=== PATIENT | male | born 1965 | race African-American/Black ===

== ENCOUNTER 2023-06-13 17:00 | Inpatient (IN) | payer OTHER ==
[2023-06-13 18:38] VITALS: BMI 21.8
[2023-06-13] MEDS ORDERED: NICOTINE POLACRILEX 4 MG GUM BUC PRN (21:29)
[2023-06-13] MEDS ORDERED: BENZONATATE 200 MG CAPSULE PO PRN (21:29)
[2023-06-13] MEDS ORDERED: COLLOIDAL OATMEAL 1 BAR EACH TP PRN (21:29)
[2023-06-13] MEDS ORDERED: NALOXONE HCL (KLOXXADO) 8 MG SPRAY NS PRN (21:29)
[2023-06-13] MEDS ORDERED: MAG HYDROX/AL HYDROX/SIMETH 30 ML UNIT-DOSE CUP PO PRN (21:29)
[2023-06-13] MEDS ORDERED: LOPERAMIDE HCL 2 MG CAPSULE PO PRN (21:29)
[2023-06-13] MEDS ORDERED: MAGNESIUM HYDROX 2400MG/30ML ORAL SUSPENSION 30 ML CUP PO PRN (21:29)
[2023-06-13] MEDS ORDERED: TUBERCULIN PPD 5 TU/0.1ML SYRINGE (IN PATIENT USE ONLY) ID ONE (21:29)
[2023-06-13] MEDS ORDERED: guaiFENesin 600 MG TABLET.ER (FP) PO PRN (21:29)
[2023-06-13] MEDS ORDERED: AMMONIUM LACTATE 12% LOTION 225 GM BOTTLE TP PRN (21:29)
[2023-06-13] MEDS ORDERED: POLYETHYLENE GLYCOL (HEALTHYLAX) 3350 17 GM PACKET PO PRN (21:29)
[2023-06-13] MEDS ORDERED: IBUPROFEN 400 MG TABLET (FP) PO PRN (21:29)
[2023-06-13] MEDS ORDERED: IBUPROFEN 600 MG TABLET (FP) PO PRN (21:29)
[2023-06-13] MEDS ORDERED: NALOXONE HCL 0.4 MG/ML VIAL IM PRN (21:29)
[2023-06-13] MEDS ORDERED: TUBERCULIN PPD 5 TU/0.1ML VIAL ID ONE ×2 (22:22→22:52)
[2023-06-13] MEDS: MELATONIN 5 MG TABLETS PO SCH (22:52)
[2023-06-13] MEDS: THIAMINE HCL 100 MG TABLET (FP) PO SCH (22:52)
[2023-06-14] MEDS: PRENATAL VITAMINS W/ FOLIC ACID TABLET (FP) PO SCH (09:17)
[2023-06-14] MEDS: NICOTINE 21 MG/24 HOURS TOPICAL PATCH TD SCH (09:18)
[2023-06-14 11:16] LABS: PH,URINE 5.5 (5.0-8.0); URINE APPEARANCE CLEAR; URINE BILIRUBIN NEGATIVE (NEGATIVE); URINE COLOR YELLOW; URINE GLUCOSE (UA) TRACE (NEGATIVE); URINE KETONE NEGATIVE (NEGATIVE); URINE LEUK ESTERASE NEGATIVE (NEGATIVE); URINE NITRITE NEGATIVE (NEGATIVE); URINE PROTEIN NEGATIVE (NEGATIVE); URINE UROBILINOGEN 0.2 mg/dL (0.2-1.0)
[2023-06-14] MEDS: SACUBITRIL/VALSARTAN 24 MG-26 MG TABLET PO SCH ×2 (12:11→21:43)
[2023-06-14] MEDS: CARVEDILOL 12.5 MG TABLET (FP) PO SCH ×2 (12:11→21:43)
[2023-06-14] MEDS: FUROSEMIDE 40 MG TABLET (FP) PO SCH (12:11)
[2023-06-14] MEDS: SPIRONOLACTONE 25 MG TABLET PO SCH (12:12)
[2023-06-14] MEDS: DAPAGLIFLOZIN PROPANEDIOL 10 MG TABLET PO SCH (12:36)
[2023-06-14 16:21] LABS: HEMATOCRIT 42.6 % (35.4-49); HEMOGLOBIN 13.3 GM/dL (11.7-16.9); MCH 24.3 pg (25.7-33.7); MCHC 31.3 g/dl (32.0-35.9); MEAN CELL VOLUME 77.5 fl (80-96); PLATELET COUNT 287 10^3/uL (134-434); RDW 15.9 % (11.9-15.9); WHITE BLOOD COUNT 7.4 K/mm3 (4.0-10.0)
[2023-06-14 16:25] LABS: ALBUMIN 3.7 g/dl (3.4-5.0); BLOOD UREA NITROGEN 20.1 mg/dL (7-18); CALCIUM 9.5 mg/dL (8.5-10.1)
[2023-06-14 16:30] LABS: BILIRUBIN,TOTAL 0.2 mg/dL (0.2-1); TOT PROT 7.9 g/dl (6.4-8.2)
[2023-06-14] MEDS: MELATONIN 5 MG TABLETS PO SCH (21:43)
[2023-06-14] MEDS: THIAMINE HCL 100 MG TABLET (FP) PO SCH (21:43)
[2023-06-15] MEDS: DAPAGLIFLOZIN PROPANEDIOL 10 MG TABLET PO SCH (06:36)
[2023-06-15] MEDS: NICOTINE 21 MG/24 HOURS TOPICAL PATCH TD SCH (10:01)
[2023-06-15] MEDS: PRENATAL VITAMINS W/ FOLIC ACID TABLET (FP) PO SCH (10:01)
[2023-06-15] MEDS: SACUBITRIL/VALSARTAN 24 MG-26 MG TABLET PO SCH ×2 (10:42→21:17)
[2023-06-15] MEDS: SPIRONOLACTONE 25 MG TABLET PO SCH (10:42)
[2023-06-15] MEDS: CARVEDILOL 12.5 MG TABLET (FP) PO SCH ×2 (10:43→21:17)
[2023-06-15] MEDS: FUROSEMIDE 40 MG TABLET (FP) PO SCH (10:44)
[2023-06-15] MEDS: MELATONIN 5 MG TABLETS PO SCH (21:16)
[2023-06-15] MEDS: THIAMINE HCL 100 MG TABLET (FP) PO SCH (21:16)
[2023-06-16] MEDS: DAPAGLIFLOZIN PROPANEDIOL 10 MG TABLET PO SCH (06:05)
[2023-06-16] MEDS: SACUBITRIL/VALSARTAN 24 MG-26 MG TABLET PO SCH ×2 (09:03→21:23)
[2023-06-16] MEDS: CARVEDILOL 12.5 MG TABLET (FP) PO SCH ×2 (09:03→21:23)
[2023-06-16] MEDS: SPIRONOLACTONE 25 MG TABLET PO SCH (09:03)
[2023-06-16] MEDS: NICOTINE 21 MG/24 HOURS TOPICAL PATCH TD SCH (09:04)
[2023-06-16] MEDS: PRENATAL VITAMINS W/ FOLIC ACID TABLET (FP) PO SCH (09:04)
[2023-06-16] MEDS: FUROSEMIDE 40 MG TABLET (FP) PO SCH (09:04)
[2023-06-16] MEDS: ACETAMINOPHEN 325 MG TABLET (FP) PO PRN (15:39)
[2023-06-16] MEDS ORDERED: NICOTINE 21 MG/24 HOURS TOPICAL PATCH TD PRN (15:58)
[2023-06-16] MEDS: MELATONIN 5 MG TABLETS PO SCH (21:23)
[2023-06-16] MEDS: THIAMINE HCL 100 MG TABLET (FP) PO SCH (21:23)
[2023-06-17] MEDS: DAPAGLIFLOZIN PROPANEDIOL 10 MG TABLET PO SCH (06:25)
[2023-06-17] MEDS: CARVEDILOL 12.5 MG TABLET (FP) PO SCH ×2 (09:54→21:18)
[2023-06-17] MEDS: FUROSEMIDE 40 MG TABLET (FP) PO SCH (09:55)
[2023-06-17] MEDS: PRENATAL VITAMINS W/ FOLIC ACID TABLET (FP) PO SCH (09:55)
[2023-06-17] MEDS: SPIRONOLACTONE 25 MG TABLET PO SCH (09:55)
[2023-06-17] MEDS: SACUBITRIL/VALSARTAN 24 MG-26 MG TABLET PO SCH ×2 (09:55→21:18)
[2023-06-17] MEDS: THIAMINE HCL 100 MG TABLET (FP) PO SCH (21:18)
[2023-06-17] MEDS: MELATONIN 5 MG TABLETS PO SCH (21:18)
[2023-06-18] MEDS: DAPAGLIFLOZIN PROPANEDIOL 10 MG TABLET PO SCH (06:17)
[2023-06-18] MEDS: FUROSEMIDE 40 MG TABLET (FP) PO SCH (09:53)
[2023-06-18] MEDS: SACUBITRIL/VALSARTAN 24 MG-26 MG TABLET PO SCH ×2 (09:53→21:06)
[2023-06-18] MEDS: SPIRONOLACTONE 25 MG TABLET PO SCH (09:53)
[2023-06-18] MEDS: PRENATAL VITAMINS W/ FOLIC ACID TABLET (FP) PO SCH (09:54)
[2023-06-18] MEDS: CARVEDILOL 12.5 MG TABLET (FP) PO SCH ×2 (09:54→21:03)
[2023-06-18] MEDS: MELATONIN 5 MG TABLETS PO SCH (21:03)
[2023-06-18] MEDS: THIAMINE HCL 100 MG TABLET (FP) PO SCH (21:03)
[2023-06-19] MEDS: DAPAGLIFLOZIN PROPANEDIOL 10 MG TABLET PO SCH (06:04)
[2023-06-19] MEDS: SPIRONOLACTONE 25 MG TABLET PO SCH (09:45)
[2023-06-19] MEDS: FUROSEMIDE 40 MG TABLET (FP) PO SCH (09:49)
[2023-06-19] MEDS: CARVEDILOL 12.5 MG TABLET (FP) PO SCH ×2 (09:49→21:34)
[2023-06-19] MEDS: SACUBITRIL/VALSARTAN 24 MG-26 MG TABLET PO SCH ×2 (09:49→21:43)
[2023-06-19] MEDS: PRENATAL VITAMINS W/ FOLIC ACID TABLET (FP) PO SCH (09:50)
[2023-06-19] MEDS: MELATONIN 5 MG TABLETS PO SCH (21:34)
[2023-06-19] MEDS: THIAMINE HCL 100 MG TABLET (FP) PO SCH (21:34)
[2023-06-20] MEDS: DAPAGLIFLOZIN PROPANEDIOL 10 MG TABLET PO SCH (06:33)
[2023-06-20] MEDS: SPIRONOLACTONE 25 MG TABLET PO SCH (09:47)
[2023-06-20] MEDS: CARVEDILOL 12.5 MG TABLET (FP) PO SCH ×2 (09:47→21:18)
[2023-06-20] MEDS: SACUBITRIL/VALSARTAN 24 MG-26 MG TABLET PO SCH ×2 (09:48→21:18)
[2023-06-20] MEDS: PRENATAL VITAMINS W/ FOLIC ACID TABLET (FP) PO SCH (09:48)
[2023-06-20] MEDS: FUROSEMIDE 40 MG TABLET (FP) PO SCH (09:48)
[2023-06-20] MEDS: MELATONIN 5 MG TABLETS PO SCH (21:18)
[2023-06-20] MEDS: THIAMINE HCL 100 MG TABLET (FP) PO SCH (21:18)
[2023-06-21] MEDS: DAPAGLIFLOZIN PROPANEDIOL 10 MG TABLET PO SCH (06:04)
[2023-06-21] MEDS: PRENATAL VITAMINS W/ FOLIC ACID TABLET (FP) PO SCH (09:51)
[2023-06-21] MEDS: CARVEDILOL 12.5 MG TABLET (FP) PO SCH ×2 (09:52→21:21)
[2023-06-21] MEDS: SACUBITRIL/VALSARTAN 24 MG-26 MG TABLET PO SCH ×2 (10:37→21:21)
[2023-06-21] MEDS: FUROSEMIDE 40 MG TABLET (FP) PO SCH (10:37)
[2023-06-21] MEDS: SPIRONOLACTONE 25 MG TABLET PO SCH (10:37)
[2023-06-21] MEDS: THIAMINE HCL 100 MG TABLET (FP) PO SCH (21:21)
[2023-06-21] MEDS: MELATONIN 5 MG TABLETS PO SCH (21:22)
[2023-06-22] MEDS: DAPAGLIFLOZIN PROPANEDIOL 10 MG TABLET PO SCH (06:02)
[2023-06-22] MEDS: FUROSEMIDE 40 MG TABLET (FP) PO SCH (09:37)
[2023-06-22] MEDS: PRENATAL VITAMINS W/ FOLIC ACID TABLET (FP) PO SCH (09:37)
[2023-06-22] MEDS: SPIRONOLACTONE 25 MG TABLET PO SCH (09:37)
[2023-06-22] MEDS: CARVEDILOL 12.5 MG TABLET (FP) PO SCH ×2 (09:40→21:20)
[2023-06-22] MEDS: SACUBITRIL/VALSARTAN 24 MG-26 MG TABLET PO SCH ×2 (09:40→21:21)
[2023-06-22] MEDS: THIAMINE HCL 100 MG TABLET (FP) PO SCH (21:20)
[2023-06-22] MEDS: MELATONIN 5 MG TABLETS PO SCH (21:20)
[2023-06-23] MEDS: DAPAGLIFLOZIN PROPANEDIOL 10 MG TABLET PO SCH (06:08)
[2023-06-23] MEDS: ACETAMINOPHEN 325 MG TABLET (FP) PO PRN ×2 (06:09→21:27)
[2023-06-23] MEDS: CARVEDILOL 12.5 MG TABLET (FP) PO SCH ×2 (09:36→21:26)
[2023-06-23] MEDS: SPIRONOLACTONE 25 MG TABLET PO SCH (09:36)
[2023-06-23] MEDS: SACUBITRIL/VALSARTAN 24 MG-26 MG TABLET PO SCH ×2 (09:36→21:30)
[2023-06-23] MEDS: FUROSEMIDE 40 MG TABLET (FP) PO SCH (09:36)
[2023-06-23] MEDS: PRENATAL VITAMINS W/ FOLIC ACID TABLET (FP) PO SCH (09:36)
[2023-06-23] MEDS: BENZOCAINE/MENTHOL (CHLORASEPTIC ) LOZENGE MM PRN (10:59)
[2023-06-23] MEDS: MELATONIN 5 MG TABLETS PO SCH (21:26)
[2023-06-23] MEDS: THIAMINE HCL 100 MG TABLET (FP) PO SCH (21:26)
[2023-06-24] MEDS: DAPAGLIFLOZIN PROPANEDIOL 10 MG TABLET PO SCH (06:20)
[2023-06-24] MEDS: ACETAMINOPHEN 325 MG TABLET (FP) PO PRN ×2 (06:20→19:02)
[2023-06-24] MEDS: SACUBITRIL/VALSARTAN 24 MG-26 MG TABLET PO SCH ×2 (09:58→21:26)
[2023-06-24] MEDS: CARVEDILOL 12.5 MG TABLET (FP) PO SCH ×2 (09:58→21:25)
[2023-06-24] MEDS: FUROSEMIDE 40 MG TABLET (FP) PO SCH (09:58)
[2023-06-24] MEDS: SPIRONOLACTONE 25 MG TABLET PO SCH (09:58)
[2023-06-24] MEDS: PRENATAL VITAMINS W/ FOLIC ACID TABLET (FP) PO SCH (09:59)
[2023-06-24] MEDS: THIAMINE HCL 100 MG TABLET (FP) PO SCH (21:25)
[2023-06-24] MEDS: MELATONIN 5 MG TABLETS PO SCH (21:25)
[2023-06-24] MEDS: BENZOCAINE/MENTHOL (CHLORASEPTIC ) LOZENGE MM PRN (21:26)
[2023-06-25] MEDS: DAPAGLIFLOZIN PROPANEDIOL 10 MG TABLET PO SCH (06:35)
[2023-06-25] MEDS: SPIRONOLACTONE 25 MG TABLET PO SCH (09:08)
[2023-06-25] MEDS: CARVEDILOL 12.5 MG TABLET (FP) PO SCH ×2 (09:09→21:23)
[2023-06-25] MEDS: SACUBITRIL/VALSARTAN 24 MG-26 MG TABLET PO SCH ×2 (09:09→21:23)
[2023-06-25] MEDS: ACETAMINOPHEN 325 MG TABLET (FP) PO PRN (09:10)
[2023-06-25] MEDS: FUROSEMIDE 40 MG TABLET (FP) PO SCH (09:10)
[2023-06-25] MEDS: PRENATAL VITAMINS W/ FOLIC ACID TABLET (FP) PO SCH (09:10)
[2023-06-25] MEDS: MELATONIN 5 MG TABLETS PO SCH (21:23)
[2023-06-25] MEDS: THIAMINE HCL 100 MG TABLET (FP) PO SCH (21:23)
[2023-06-26] MEDS: DAPAGLIFLOZIN PROPANEDIOL 10 MG TABLET PO SCH (06:29)
[2023-06-26] MEDS: SPIRONOLACTONE 25 MG TABLET PO SCH (09:32)
[2023-06-26] MEDS: CARVEDILOL 12.5 MG TABLET (FP) PO SCH ×2 (09:32→21:06)
[2023-06-26] MEDS: FUROSEMIDE 40 MG TABLET (FP) PO SCH (09:32)
[2023-06-26] MEDS: PRENATAL VITAMINS W/ FOLIC ACID TABLET (FP) PO SCH (09:33)
[2023-06-26] MEDS: SACUBITRIL/VALSARTAN 24 MG-26 MG TABLET PO SCH ×2 (09:33→21:07)
[2023-06-26] MEDS: MELATONIN 5 MG TABLETS PO SCH (21:06)
[2023-06-26] MEDS: THIAMINE HCL 100 MG TABLET (FP) PO SCH (21:06)
[2023-06-27] MEDS: DAPAGLIFLOZIN PROPANEDIOL 10 MG TABLET PO SCH (06:09)
[2023-06-27 06:39] VITALS: TEMP 98
[2023-06-27 06:41] VITALS: BP 143/83; PULSE 59; RESP 18
[2023-06-27] MEDS: FUROSEMIDE 40 MG TABLET (FP) PO SCH (09:09)
[2023-06-27] MEDS: CARVEDILOL 12.5 MG TABLET (FP) PO SCH (09:09)
[2023-06-27] MEDS: SPIRONOLACTONE 25 MG TABLET PO SCH (09:10)
[2023-06-27] MEDS: SACUBITRIL/VALSARTAN 24 MG-26 MG TABLET PO SCH (09:11)
[2023-06-27] MEDS: PRENATAL VITAMINS W/ FOLIC ACID TABLET (FP) PO SCH (09:11)
== END 2023-06-27 09:12 | disposition home or self-care (01) | DRG 772 ==
LOC: YASAS 17:00 → Y3E 21:26
PROVIDERS: ADMIT Allergy & Immunology; ATTEND Psychiatry & Neurology Pain Medicine
PROC: HZ42ZZZ Group Counseling for Substance Abuse Treatment, Cognitive-Behavioral (ICD-10-PCS; principal; 2023-06-13)
DX: F10.20 Alcohol dependence, uncomplicated (principal); F14.20 Cocaine dependence, uncomplicated; F17.210 Nicotine dependence, cigarettes, uncomplicated; I50.9 Heart failure, unspecified; R20.0 Anesthesia of skin; Z86.19 Personal history of other infectious and parasitic diseases
CPT/HCPCS: 36415; 80053; 81003; 82962; 85027; 86593; 86780; 87635; 93005; 93010